=== PATIENT | male | born 1985 | race American Indian/Alaskan Native ===

== ENCOUNTER 2017-05-19 12:07 | Emergency (ER) | payer OTHER ==
[2017-05-19 13:22] LABS: Basophils % (Auto) 0.2 % (0.0-1.8); Eosinophils % (Auto) 0.1 % (0.0-4.3); Hematocrit 45.8 % (35.5-45.6); Hemoglobin 14.7 gm/dl (11.8-15.2); Lymphocytes # (Auto) 0.8 K/mm3 (1.2-5.4); Lymphocytes % (Auto) 9.1 % (13.4-35.0); Mean Corpuscular HGB Conc 32 % (32-34); Mean Corpuscular Hemoglobin 26 pg (28-32); Mean Corpuscular Volume 82 fl (84-94); Monocytes # (Auto) 1.1 K/mm3 (0.0-0.8); Monocytes % (Auto) 11.9 % (0.0-7.3); Platelet Count 179 K/mm3 (140-440); Red Blood Count 5.55 M/mm3 (3.65-5.03); Red Cell Distribution Width 13.5 % (13.2-15.2)
[2017-05-19 13:45] LABS: BUN/Creatinine Ratio 11; Blood Urea Nitrogen 9 mg/dL (9-20); Calcium 8.9 mg/dL (8.4-10.2); Hemolysis Index 57
[2017-05-19 14:32] LABS: Bilirubin,Urine NEG (Negative); Blood,Urine NEG (Negative); Color,Urine Yellow (Yellow); Mucus,Urine FEW /HPF
[2017-05-19 14:45] LABS: Amphetamine Screen,Urine PRESUMPTIVE NEGATIVE; Benzodiazepines Screen,Urine PRESUMPTIVE NEGATIVE; Cannabinoid Screen,Urine PRESUMPTIVE NEGATIVE; Cocaine Screen,Urine PRESUMPTIVE NEGATIVE; Methadone Screen,Urine PRESUMPTIVE NEGATIVE; Opiate Screen,Urine PRESUMPTIVE NEGATIVE
[2017-05-19] MEDS ORDERED: TYLENOL PO PRN (16:06)
[2017-05-19] MEDS ORDERED: HALDOL IM PRN (16:06)
[2017-05-19] MEDS ORDERED: ZOFRAN ODT PO PRN (16:06)
[2017-05-19] MEDS ORDERED: ATIVAN IM PRN (16:06)
--- NOTE | 2017-05-19 16:07 | Emergency Department Report ---
ED General Adult HPI - General Chief complaint: Psych Stated complaint: EVALUATION/CHEST PAIN Time Seen by Provider: 05/19/17 15:59 Source: patient, RN notes reviewed Mode of arrival: Wheelchair Limitations: No Limitations - History of Present Illness Initial comments: This is a 32-year-old male who was previously unknown to this provider. He does not have a local primary care doctor and he denies chronic medical conditions. He presents to the ER with multiple complaints. His first complaint is flulike symptoms for one week. They're constant. They do not radiate anywhere. They do not have exacerbating or relieving factors. next complaint is suicidality. It is exacerbated by the fact that he is homeless. He does not have access to guns or firearms, he is not homicidal, he does not currently have a plan, he is not attempted overdose. The patient's next complaint is chest pressure. It has been present for days. It does not radiate anywhere. There is no vomiting or diaphoresis. There is no leg pain or leg swelling, the patient denies cocaine, recent aspirin ingestion, DVT, pulmonary embolus or DVT risk factors, he does not have exacerbating or relieving factors. -: Gradual Location: chest Radiation: non-radiation Quality: aching Consistency: intermittent Improves with: none Worsens with: none Associated Symptoms: chest pain, cough, fever/chills, weakness. denies: confusion, diaphoresis, headaches, loss of appetite, malaise, nausea/vomiting, rash, seizure, shortness of breath, syncope - Related Data Home Medications Medication Instructions Recorded Confirmed Last Taken No Known Home Medications [No 05/19/17 05/19/17 Unknown Reported Home Medications] Allergies Allergy/AdvReac Type Severity Reaction Status Date / Time No Known Allergies Allergy Unverified 05/19/17 12:10 ED Review of Systems ROS: Stated complaint: EVALUATION/CHEST PAIN Other details as noted in HPI Comment: All other systems reviewed and negative (see history of present illness ) ED Past Medical Hx - Past Medical History Previous Medical History?: No - Surgical History Past Surgical History?: No - Social History Smoking Status: Never Smoker Substance Use Type: None - Medications Home Medications: Home Medications Medication Instructions Recorded Confirmed Last Taken Type No Known Home Medications [No 05/19/17 05/19/17 Unknown History Reported Home Medications] ED Physical Exam - General Limitations: No Limitations General appearance: alert, in no apparent distress - Head Head exam: Present: atraumatic, normocephalic - Eye Eye exam: Present: normal appearance, PERRL, EOMI. Absent: nystagmus - ENT ENT exam: Present: normal exam, normal orophraynx, mucous membranes moist, normal external ear exam - Neck Neck exam: Present: normal inspection, full ROM - Respiratory Respiratory exam: Present: normal lung sounds bilaterally. Absent: respiratory distress - Cardiovascular Cardiovascular Exam: Present: regular rate, normal rhythm, normal heart sounds. Absent: bradycardia, tachycardia, irregular rhythm, systolic murmur, diastolic murmur, rubs, gallop - GI/Abdominal GI/Abdominal exam: Present: soft, normal bowel sounds. Absent: distended, tenderness, guarding, pulsatile mass - Rectal Rectal exam: Present: deferred - Extremities Exam Extremities exam: Present: normal inspection, full ROM, normal capillary refill. Absent: tenderness, pedal edema, joint swelling, calf tenderness - Back Exam Back exam: Present: normal inspection, full ROM. Absent: tenderness, CVA tenderness (R), paraspinal tenderness, vertebral tenderness - Neurological Exam Neurological exam: Present: alert, oriented X3, CN II-XII intact, normal gait, other (Extraocular movements intact. Tongue midline. No facial droop. Facial sensation intact to light touch in the V1, V2, V3 distribution bilaterally. 5 and 5 strength in 4 extremities.. Sensation is intact to light touch in 4 extremities.). Absent: motor sensory deficit - Psychiatric Psychiatric exam: Present: normal affect, suicidal ideation. Absent: homicidal ideation - Skin Skin exam: Present: warm, dry, intact, normal color. Absent: rash ED Course Vital Signs 05/19/17 05/19/17 05/19/17 12:10 14:45 17:27 Temperature 99.8 F H 99.9 F H 98.9 F Pulse Rate 98 H 88 82 Respiratory 16 16 17 Rate Blood Pressure 127/83 Blood Pressure 125/78 [Left] Blood Pressure 132/70 [Right] O2 Sat by Pulse 99 96 96 Oximetry 05/19/17 05/19/17 20:00 21:03 Temperature 100.7 F H Pulse Rate 91 H Respiratory 20 20 Rate Blood Pressure Blood Pressure [Left] Blood Pressure 112/73 [Right] O2 Sat by Pulse 97 Oximetry ED Medical Decision Making - Lab Data Result diagrams: 05/19/17 13:18 05/19/17 13:18 Vital Signs 05/19/17 05/19/17 05/19/17 12:10 14:45 17:27 Temperature 99.8 F H 99.9 F H 98.9 F Pulse Rate 98 H 88 82 Respiratory 16 16 17 Rate Blood Pressure 127/83 Blood Pressure 125/78 [Left] Blood Pressure 132/70 [Right] O2 Sat by Pulse 99 96 96 Oximetry Labs 05/19/17 05/19/17 05/19/17 13:18 13:18 13:18 WBC RBC Hgb Hct MCV MCH MCHC RDW Plt Count Lymph % (Auto) [place] % (Auto) Eos % (Auto) Baso % (Auto) Lymph # [place] # Eos # Baso # Seg Neutrophils % Seg Neutrophils # Sodium 137 Potassium 4.5 Chloride 97.8 L Carbon Dioxide 27 Anion Gap 17 BUN 9 Creatinine 0.8 Estimated GFR > 60 BUN/Creatinine Ratio 11 Glucose 90 Calcium 8.9 Troponin T Urine Color Urine Turbidity Urine pH Ur Specific [place] Urine Protein Urine Glucose (UA) Urine Ketones Urine Blood Urine Nitrite Urine Bilirubin Urine Urobilinogen Ur Leukocyte Esterase Urine WBC (Auto) Urine RBC (Auto) Urine Mucus Salicylates < 0.3 L Urine Opiates Screen Urine Methadone Screen Acetaminophen < 15.0 Ur Barbiturates Screen Ur Phencyclidine Scrn Ur Amphetamines Screen U Benzodiazepines Scrn Urine Cocaine Screen U Marijuana (THC) Screen Drugs of Abuse Note Plasma/Serum Alcohol 05/19/17 05/19/17 05/19/17 13:18 13:18 16:34 WBC 8.9 RBC 5.55 H Hgb 14.7 Hct 45.8 H MCV 82 L MCH 26 L MCHC 32 RDW 13.5 Plt Count 179 Lymph % (Auto) 9.1 L [place] % (Auto) 11.9 H Eos % (Auto) 0.1 Baso % (Auto) 0.2 Lymph # 0.8 L [place] # 1.1 H Eos # 0.0 Baso # 0.0 Seg Neutrophils % 78.7 H Seg Neutrophils # 7.0 Sodium Potassium Chloride Carbon Dioxide Anion Gap BUN Creatinine Estimated GFR BUN/Creatinine Ratio Glucose Calcium Troponin T < 0.010 Urine Color Urine Turbidity Urine pH Ur Specific [place] Urine Protein Urine Glucose (UA) Urine Ketones Urine Blood Urine Nitrite Urine Bilirubin Urine Urobilinogen Ur Leukocyte Esterase Urine WBC (Auto) Urine RBC (Auto) Urine Mucus Salicylates Urine Opiates Screen Urine Methadone Screen Acetaminophen Ur Barbiturates Screen Ur Phencyclidine Scrn Ur Amphetamines Screen U Benzodiazepines Scrn Urine Cocaine Screen U Marijuana (THC) Screen Drugs of Abuse Note Plasma/Serum Alcohol < 0.01 05/19/17 05/19/17 Unknown Unknown WBC RBC Hgb Hct MCV MCH MCHC RDW Plt Count Lymph % (Auto) [place] % (Auto) Eos % (Auto) Baso % (Auto) Lymph # [place] # Eos # Baso # Seg Neutrophils % Seg Neutrophils # Sodium Potassium Chloride Carbon Dioxide Anion Gap BUN Creatinine Estimated GFR BUN/Creatinine Ratio Glucose Calcium Troponin T Urine Color Yellow Urine Turbidity Clear Urine pH 6.0 Ur Specific [place] 1.026 Urine Protein 100 mg/dl Urine Glucose (UA) Neg Urine Ketones Tr Urine Blood Neg Urine Nitrite Neg Urine Bilirubin Neg Urine Urobilinogen 4.0 Ur Leukocyte Esterase Neg Urine WBC (Auto) 1.0 Urine RBC (Auto) 2.0 Urine Mucus Few Salicylates Urine Opiates Screen Presumptive negative Urine Methadone Screen Presumptive negative Acetaminophen Ur Barbiturates Screen Presumptive negative Ur Phencyclidine Scrn Presumptive negative Ur Amphetamines Screen Presumptive negative U Benzodiazepines Scrn Presumptive negative Urine Cocaine Screen Presumptive negative U Marijuana (THC) Screen Presumptive negative Drugs of Abuse Note Disclamer Plasma/Serum Alcohol - EKG Data 05/19/17 19:42 EKG #1 demonstrates normal sinus, 78 bpm, normal intervals, left axis deviation , not morphologically consistent with ST elevation myocardial infarction, Repeat EKG appears to be unchanged, left axis deviation is borderline, neither EKG is consistent with a STEMI - Radiology Data Radiology results: report reviewed, image reviewed X-ray of the chest, no acute disease, no acute pathology - Medical Decision Making Differential diagnosis, including but not limited to: Homelessness, flulike illness, pneumonia, acute coronary syndrome, pericarditis, myocarditis, malingering, viral syndrome Assessment and plan: 32-year-old male with multiple complaints. Clinically sober, has a GCS of 15, placed on a 1013 for suicidality, laboratory studies unremarkable for toxicity, troponin negative 1, chest pressure present for days, low risk by CAITIE score, low risk by heart score, no pulmonary embolus or DVT risk factors, perc negative. X-ray the chest negative, as per the [employer] clinical policy, myocardial infarction may be excluded with one set of troponin/ cardiac enzymes if symptoms have been present for greater than 8 hours. No indication for flu screen or Tamiflu as symptoms present for greater than 72 hours. At this point in time, there is no immediate medical contraindication to psychiatric admission, evaluation/consultation, and the crisis team has been informed to help coordinate the patient's psychiatric care. Since suicidality is most likely a function of his homelessness, and his 1013 may be able to be safely discontinued after a period of observation in the emergency room. I will defer to the psychiatry team to make further recommendations on this. Critical care attestation.: If time is entered above; I have spent that time in minutes in the direct care of this critically ill patient, excluding procedure time. ED Disposition Clinical Impression: Mood disorder, Medical clearance for psychiatric admission Disposition: [id number] PSY HOSP/PSY UNIT Is pt being admited?: No Does the pt Need Aspirin: No Condition: Good Referrals: PRIMARY CARE, [Primary Care Provider] - 3-5 Days
--- NOTE | 2017-05-19 16:45 | XRay Report ---
FINAL REPORT PROCEDURE: XR CHEST 1V AP TECHNIQUE: Chest radiograph anteroposterior view. CPT 36437 HISTORY: cp COMPARISON: No prior studies are available for comparison. FINDINGS: Heart: Normal. Mediastinum/Vessels: Normal. Lungs/Pleural space: Slight elevation left hemidiaphragm Bony thorax: No acute osseous abnormality. Life support devices: None. IMPRESSION: No acute cardiopulmonary abnormality.
--- NOTE | 2017-05-20 12:29 | Consultation ---
History of Present Illness - Reason for Consult Consult date: 05/20/17 Reason for consult: Mental Health Evaluation Requesting physician: LEONOR GONZALEZ - Chief Complaint Chief complaint: "I am not suicidal" - History of Present Psychiatric Illness 32 y.o. AA male presenting to [facility] for chest pain, flu like symptoms, and suicidality. Today the patient is calm and cooperative during the assessment. He stated that he has lost his job and vehicle (repossession) the last 2 months. He stated that he want to be referred to correction because he is "tired" of living on the [address]. He stated that his family resides out of town. He stated that he mentioned being suicidal on admission to get placed in a correction. He denies previous suicide attempts or thoughts. He denies having a mental health dx. He stated that he want to get his life together and move forward. He stated that it is other ways to get help other than gesturing "suicide." He denies SI/HI's and AVH's. He denies sleep disturbance and a poor appetite. He denies recreational drug use and alcohol consumption (etoh). Medications and Allergies Allergies Allergy/AdvReac Type Severity Reaction Status Date / Time No Known Allergies Allergy Unverified 05/19/17 12:10 Home Medications Medication Instructions Recorded Confirmed Last Taken Type No Known Home Medications [No 05/19/17 05/19/17 Unknown History Reported Home Medications] Active Meds: Active Medications Acetaminophen (Tylenol) 650 mg PO Q6HR PRN PRN Reason: Pain Last Admin: 05/19/17 21:03 Dose: 650 mg Haloperidol Lactate (Haldol) 5 mg IM Q6HR PRN PRN Reason: Agitation Lorazepam (Ativan) 2 mg IM Q4HR PRN PRN Reason: Agitation Ondansetron HCl (Zofran Odt) 4 mg PO Q6HR PRN PRN Reason: Nausea Past psychiatric history - Past Medical History Past Medical History: No medical history Past Surgical History: No surgical history - past Psychiatric treatment and history psychiatric treatment history: Denies a fam psy hx and fam psy hx. - Social History Social history: other (Homeless) Mental Status Exam - Vital signs Last Vital Signs Temp 98.7 F 05/19/17 22:57 Pulse 91 H 05/19/17 20:00 Resp 20 05/19/17 21:03 BP 112/73 05/19/17 20:00 Pulse Ox 97 05/19/17 20:00 - Exam Narrative exam: MSE: Appearance: calm, cooperative Behavior: regular eye contact Speech: regular rate and tone Mood: "okay" Affect: congruent to mood Thought Process: linear Thought Content: denies SI/HI's and AVH's Motor Activity: ambulatory Cognition: A/O x3 Insight: appropriate Judgment: appropriate Results Result Diagrams: 05/19/17 13:18 05/19/17 13:18 Abnormal lab results 05/19/17 05/19/17 05/19/17 Range/Units 13:18 13:18 13:18 RBC 5.55 H (3.65-5.03) M/mm3 Hct 45.8 H (35.5-45.6) % MCV 82 L (84-94) fl MCH 26 L (28-32) pg Lymph % (Auto) 9.1 L (13.4-35.0) % [place] % (Auto) 11.9 H (0.0-7.3) % Lymph # 0.8 L (1.2-5.4) K/mm3 [place] # 1.1 H (0.0-0.8) K/mm3 Seg Neutrophils % 78.7 H (40.0-70.0) % Chloride 97.8 L (98-107) mmol/L Salicylates < 0.3 L (2.8-20.0) mg/dL All other labs normal. Assessment and Plan Assessment and plan: Impression: Adjustment DO. Today the patient is calm and cooperative during the assessment. The patient is no threat to self. DDx: R/O Mood DO Recommendation/Plan: Rescind 1013. Informed [employer] D[employer] Operator, the patient will need placement, he is homeless.
[2017-05-21 10:36] VITALS: BP 123/84
== END 2017-05-21 15:42 ==
LOC: ED 12:07
DX: F39 Unspecified mood [affective] disorder (principal)
CPT/HCPCS: 36415; 71045; 80048; 80307; 81001; 84484; 85025; 93005; 93010; 99285; G0480; 80320